=== PATIENT | male | born 1990 | race African-American/Black ===

== ENCOUNTER 2023-10-22 09:55 | Emergency (ER) | payer OTHER, SELFPAY ==
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
[2023-10-22 10:00] VITALS: BP 127/66; PULSE 70; RESP 16; TEMP 36.3; O2SAT 99
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
--- NOTE | 2023-10-22 11:45 | PC.NURSE ---
Ice pack given for neck pain.
== END 2023-10-22 11:48 | disposition home or self-care (01) ==
PROVIDERS: Emergency Provider Family Medicine; Referring Provider Emergency Medicine
DX: S16.1XXA Strain of muscle, fascia and tendon at neck level, initial encounter (principal); S93.401A Sprain of unspecified ligament of right ankle, initial encounter; V49.40XA Driver injured in collision with unspecified motor vehicles in traffic accident, initial encounter
CPT/HCPCS: 72040; 73610; 99284

== ENCOUNTER 2023-11-03 12:55 | Emergency (ER) | payer OTHER, SELFPAY ==
--- NOTE | ~2023-11-03 | XR_ITS ---
EXAMINATION: XR knee RT 3V DATE: 11/03/2023 13:15 INDICATION: Anterior right knee pain. Injury. TECHNIQUE: 3 views of right knee were obtained. COMPARISON: None. FINDINGS: Bone alignment is normal. No fracture. There is mild osteoarthritis of patellofemoral digna rtment. There is a small knee joint effusion. IMPRESSION: 1. Mild right knee osteoarthritis. 2. Small right knee joint effusion. Reviewed, dictated and finalized at location A.
[2023-11-03 13:04] VITALS: BP 120/76; PULSE 69; RESP 17; TEMP 36.7; O2SAT 100
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
[2023-11-03 13:41] VITALS: BP 118/73; PULSE 73; RESP 18; TEMP 36.7; O2SAT 100
== END 2023-11-03 13:42 | disposition home or self-care (01) ==
PROVIDERS: Emergency Provider Emergency Medicine; Referring Provider Family Medicine
DX: M25.461 Effusion, right knee (principal); M17.11 Unilateral primary osteoarthritis, right knee
CPT/HCPCS: 73562; 99283

== ENCOUNTER 2024-09-30 18:00 | Emergency (ER) | payer BC, SELFPAY ==
--- NOTE | ~2024-09-30 | XR_ITS ---
CHEST RADIOGRAPH, PA AND LATERAL CLINICAL HISTORY: cough . COMPARISON: None available TECHNIQUE: PA and lateral views of the chest. FINDINGS The cardiomediastinal silhouette is unremarkable. The lungs are clear. Visualized osseous structures and soft tissues are unremarkable. IMPRESSION: No focal infiltrate or effusion. Reviewed, dictated and finalized at location A.
[2024-09-30 18:05] VITALS: BP 139/68; PULSE 71; RESP 16; TEMP 36.4; O2SAT 100
--- NOTE | 2024-09-30 19:03 | ED_ITS ---
HPI - URI/Sore Throat General Chief Complaint: Upper Respiratory Infection Stated Complaint: coughing up blood Time Seen by Provider: 09/30/24 18:36 History of Present Illness HPI Narrative: 34-year-old otherwise healthy male presenting with upper respiratory infection symptoms for last several days and today he presented with hemoptysis he came to the ER for evaluation. No fever, chills, chest pain. No pleuritic component. Was otherwise in his normal state of health, no sick contacts. Has not tried any medications [id number]. No recent antibiotic use. No recent steroids. No history of smoking or lung disease. Related Data Allergies Allergy/AdvReac Type Severity Reaction Status Date / Time tramadol (From Ultram) AdvReac Nausea and Verified 09/30/24 18:03 Vomiting Review of Systems Review of Systems: As reviewed above in HPI PMFSH Past Medical History Medical History Healthy adult male Exam Narrative: GENERAL: [Well-appearing, well-nourished, and in no acute distress.] HEAD: [Normocephalic, atraumatic.] EYES: [PERRLA and EOMI.] ENT: Nares clear, no rhinorrhea or epistaxis. Mucous membranes moist. NECK: Supple. CHEST: Some coarse breath sounds right worse than left, no respiratory distress or tachypnea. HEART: [Regular rate and rhythm]. No murmur heard. [Normal peripheral pulses.] ABDOMEN: [Soft, nondistended], [nontender], [No rigidity or guarding] EXTREMITIES: Normal range of motion. [No edema.] SKIN: Warm, dry, no rash. NEURO: [No focal deficits]. Alert and oriented [x3.] PSYCH: [Normal mood and affect.] Course Vital Signs Vital signs: Vital Signs Temperature 36.4 C L 09/30/24 18:05 Pulse Rate 71 09/30/24 18:05 Respiratory Rate 16 09/30/24 18:05 Blood Pressure 139/68 09/30/24 18:05 Pulse Oximetry 100 09/30/24 18:05 Oxygen Delivery Room Air 09/30/24 18:05 Temperature 36.4 C L 09/30/24 18:05 Pulse Rate 85 09/30/24 19:53 Respiratory Rate 18 09/30/24 19:53 Blood Pressure 126/78 09/30/24 19:53 Pulse Oximetry 100 09/30/24 19:53 Oxygen Delivery Room Air 09/30/24 18:23 MDM - URI/Sore Throat MDM Narrative Medical decision making narrative: 34-year-old otherwise healthy male presenting to the emergency depart with upper respiratory infection symptoms for last several days associated with cough and congestion. Today he had a coughing fit and had some blood in the sputum. Previous the sputum was tinged yellow and green. No chest pain or chest discomfort. He is saturating well on room air, no hypoxia, tachycardia, tachypnea or fever. Normal blood pressure. Some asymmetric rhonchorous breath sounds, suspicion for pneumonia versus bronchitis. Pleurisy. Low suspicion for malignancy or thromboembolic event. Low Wells criteria. Two-view chest x-ray and viral panel swabs were obtained. Chest x-ray shows no suspicion findings or any pneumonia. COVID fluid RSV panel negative. Patient likely has bronchitis and will be sent home on steroids and albuterol as needed. Patient comfortable with this plan and safe for discharge. Medical Records Attestation: I reviewed the patient's medical records. Lab Data Attestation: I reviewed the patient's lab results. Labs: Lab Results 09/30/24 Range/Units 19:09 Influenza A (RT-PCR) Negative (Negative) Influenza B (RT-PCR) Negative (Negative) SARS-CoV-2 RNA (RT-PCR) Negative (Negative) Imaging Data Attestation: I personally reviewed and interpreted this imaging study as follows: My impression: Impressions Chest X-Ray 09/30/24 19:44 IMPRESSION: No focal infiltrate or effusion. Discharge Plan Discharge Clinical Impression: Bronchitis, Upper respiratory infection Patient Disposition: Home, Self-Care Condition: Stable Instructions: Antibiotic Form, Acute Bronchitis (ED) Additional Instructions: Your chest x-ray shows no signs of pneumonia. Your symptoms are consistent with bronchitis. We will send you home with a short course of steroids and an albuterol inhaler to take as needed if you have any shortness of breath or wheezing. Patient Language: Turkish Prescriptions: New methylprednisolone [Medrol (Paxton)] 4 mg tablets,dose pack See Rx Instructions .ROUTE .COMPLEX Qty: 21 0RF Rx Instructions: orally per package directions albuterol sulfate 90 mcg/actuation HFA aerosol inhaler 2 puff inhalation QID PRN (Reason: shortness of breath or wheezing) Qty: 8.5 0RF No Action ibuprofen 600 mg tablet 600 mg PO TID PRN (Reason: pain) Qty: 20 0RF cyclobenzaprine 5 mg tablet 5 mg PO HS PRN (Reason: muscle spasm) Qty: 20 0RF naproxen 375 mg tablet 375 mg PO BID Qty: 14 0RF Follow-up/Referrals: PHYSICIAN,CANDY BAR ATTENDANT [Primary Care Provider] - Time of Disposition: 20:04
--- OUTSIDE RECORDS SUMMARY | 2024-09-30 19:14 | XMS_ITS | Referral Summary ---
Author Organization [facility] Address [address] [place] [address] Care Team Providers Care Staff Midwife/Apprenticeship Director Name Role Phone No, Physician Primary Care Provider [phone] Allergies Active Allergy Reactions Criticality Noted Date Comments Tramadol Vomiting Low 09/24/2020 Medications ibuprofen (ADVIL,MOTRIN) 600 mg tablet Take 1 tablet (600 mg total) by mouth 3 (three) times a day as needed for pain 30 tablet 09/24/2020 Active ibuprofen (ADVIL,MOTRIN) 800 mg tablet Take 1 tablet (800 mg total) by mouth 3 (three) times a day 21 tablet 10/21/2023 Active Immunizations Immunization Administration Dates Next Due DTP 03/16/1994, 1,1988,1988,0 1988,1988,1988 Hep A, Adult 01/13/2019 Hep A, Ped Unspecified 02/05/2006 Hep A, Unspecified 07/31/2022 Hep B, Adolescent or Pediatric 07/06/2003,2001,05/30/2001 HiB 03/08/1991 MMR 03/16/1994,09/01/1989 OPV 03/16/1994, 1,1988,1988,0 1988,1988 Tdap 11/03/2020,02/05/2006 Social History Tobacco Use Types Packs/Day Years Used Date Smoking Tobacco: Never Assessed Personal Safety Answer Date Recorded Have you ever been in or are you currently in a harmful physical or emotional relationship or is someone making you feel afraid or unsafe? 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 Gender Identity Not on file Sexual Orientation Not on file Last Filed Vital Signs Vital Sign Reading Time Taken Comments Blood Pressure 120/76 10/21/2023 5:39 AM CDT Pulse 67 10/21/2023 5:39 AM CDT Temperature 36.7 C (98.1 F) 10/21/2023 1:54 AM CDT Respiratory Rate 19 10/21/2023 5:39 AM CDT Oxygen Saturation 100% 10/21/2023 5:39 AM CDT Inhaled Oxygen Concentration - - Weight 74.8 kg (165 lb) 10/21/2023 1:54 AM CDT Height 175.3 cm (5' 9 ) 10/21/2023 1:54 AM CDT Body Mass Index 24.37 10/21/2023 1:54 AM CDT Plan of Treatment Not on file [id number] [place] [id number] [facility] [place] [address] ACCESS [facility] Care Teams Staff Midwife/Apprenticeship Director Relationship Specialty Start Date End Date No, Physician PCP - General 09/24/20
--- OUTSIDE RECORDS SUMMARY | 2024-09-30 19:14 | XMS_ITS | Clinical Summary ---
Author Organization [facility] Address [address] [place] [address] Care Team Providers Care Animal Husbandry Professor Name Role Phone None, Provider MD Primary Care Provider Unavaila ble Allergies Active Allergy Reactions Criticality Noted Date Comments Tramadol Vomiting,Nausea and Vomiting 018 Medications ondansetron 4 MG disintegrating tablet Take 1 tablet (4 mg total) by mouth every 8 (eight) hours as needed for Nausea. 20 tablet 1 Active HYDROcodone-acetami nophen 5-325 MG tabletIndications:A cute Pain < 7 Day Supply Take 1 tablet by mouth every 6 (six) hours as needed. Indications : Acute Pain < 7 Day Supply 20 tablet 1 Active diazePAM 5 MG tablet Take 1 tablet (5 mg total) by mouth every 6 (six) hours as needed (muscle spasm). 10 tablet 1 Active aspirin 81 MG chewable tablet Chew 81 mg by mouth daily. Active Active Problems No known active problems Family History Medical History Relation Comments No Known Problems Father No Known Problems Mother Relation Status Comments Father Alive Mother Alive Social History Tobacco Use Types Packs/Day Years Used Date Smoking Tobacco: Never Smokeless Tobacco: Never Tobacco Cessation:Counseling Given: Yes Alcohol Use Standard Drinks/Week Comments Not Currently 0 (1 standard drink = 0.6 oz pur e alcohol) Sex and Gender Information Value Date Recorded Sex Assigned at Not on file Legal Sex Male 7:39 PM CDT Gender Identity Not on file Sexual Orientation Not on file Last Filed Vital Signs Vital Sign Reading Time Taken Comments Blood Pressure 117/83 02/26/2021 11:31 AM CDT Pulse 78 02/26/2021 11:31 AM CDT Temperature 36.2 C (97.2 F) 02/05/2021 10:23 AM CDT Respiratory Rate 20 02/26/2021 11:31 AM CDT Oxygen Saturation 98% 02/26/2021 11:31 AM CDT Inhaled Oxygen Concentration - - Weight 76.7 kg (169 lb) 02/26/2021 11:31 AM CDT Height 175.3 cm (5' 9 ) 02/26/2021 11:31 AM CDT Body Mass Index 24.96 02/26/2021 11:31 AM CDT Plan of Treatment Health Maintenance Due Date Last Done Comments Annual Physical 1991 Hepatitis C 2006 DTaP, Tdap and Td Vaccines ( 1 - Tdap) 2007 Hepatitis B Vaccines (1 of 3 - 19+ 3-dose series) 2007 COVID-19 Vaccine (2023-2 5 season) 2024 01/10/2021, 12/13/2020 Influenza Adult (#1) 2024 HPV Vaccines Aged Out No longer eligi ble based on patient's age to complete this topic Meningococcal B Vaccine Aged Out No l onger eligible based on patient's age to complete this topic Meningococcal Vaccine Aged Out No chelita troy eligible based on patient's age to complete this topic Pneumococcal Vaccine: Pediatrics (0 to 5 Years) and At-Risk Patients (6 to 64 Years) Aged Out No longer eligible b ased on patient's age to complete this topic RSV Immunizations Under 20 Months Aged Out No longer eligible b ased on patient's age to complete this topic Medical Devices Implanted Type Area Fruit Vendor Device Identifier Shelf Expiration Date Model / Serial / Lot Left 4-Hole Plate Implanted:Qty: 1 on 01/23/2021 by Gabriele Mayer MD at [facility] Plate Left: Ankle [employer] [id number] / / 3.5 Cortical Screws 16mm Implanted:Qty: 2 on 01/23/2021 by Gabriele Mayer MD at [facility] Screw Left: Ankle [employer] [id number] / / 2.7mm Locking Screw, 12mm Implanted:Qty: 3 on 01/23/2021 by Gabriele Mayer MD at [facility] [place] Screw Left: Ankle [employer] [id number] / / 2.7mm Locking Screw, 14mm Implanted:Qty: 1 on 01/23/2021 by Gabriele Mayer MD at [facility] [place] Screw Left: Ankle [employer] [id number] / / 2.7mm Locking Screw, 10mm Implanted:Qty: 1 on 01/23/2021 by Gabriele Mayer MD at [facility] [place] Screw Left: Ankle [employer] [id number] / / 3.5 Cortical Screw, 26mm Implanted:Qty: 1 on 01/23/2021 by Gabriele Mayer MD at [facility] [place] Screw Left: Ankle [employer] [id number] / / 3.5 Cortical Screw, 18mm Implanted:Qty: 1 on [facility] Left: Ankle [employer] [id number] / / Explanted Type Area Fruit Vendor Device Identifier Shelf Expiration Date Model / Serial / Lot 3.5 Cortical Screw 28mm Explanted:Qty: 1 on 01/23/2021 [facility] Screw Left: Ankle [employer] [id number] / / Insurance MEDICAID Care Teams Animal Husbandry Professor Relationship Specialty Start Date End Date None, ProviderMD PCP - General 01/14/21
--- OUTSIDE RECORDS SUMMARY | 2024-09-30 19:14 | XMS_ITS | Clinical Summary ---
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 Gender Identity Not on file Sexual Orientation Not on file Obstetrics History Last Filed Vital Signs Vital Sign Reading [...] 10/21/2023 1:54 AM CDT Plan of Treatment Health Maintenance Due Date Last Done Comments Depression Screening 1988 Hepatitis C Screening 1988 Varicella Vaccines (1 of 2 - 13+ 2-dose series) 2001 Regular Well Visit/Exam 18-64 2006 Covid-19 Vaccine ( season) 2024 07/14/2021, 06/06/2021, 01/10/2021, Additional history exists Influenza Vaccine (#1) 2024 DTaP/Tdap/Td Vaccine (8 - Td or Tdap) 11/03/2030 11/03/2020, 02/05/2006, 03/16/1994, Additional history exists Hepatitis B Screening Completed 07/06/2003 , 03/10/2002, 05/30/2001 HPV Vaccines Aged Out No longer eligi ble based on patient's age to complete this topic Pneumococcal vaccine <65 Aged Out No longer eligible based on patient's age to complete this topic Insurance IDPA [facility] ANTH [employer]ESS [facility] Care Teams Bead Worker Sewing Relationship Specialty Start Date End Date No, Physician PCP - General 09/24/20
[2024-09-30 19:52] LABS: Influenza A QL RT-PCR Negative (Negative); Influenza B QL RT-PCR Negative (Negative); SARS-CoV-2 RNA PCR Negative (Negative)
[2024-09-30 19:53] VITALS: BP 126/78; PULSE 85; RESP 18; O2SAT 100
[2024-09-30 20:44] VITALS: BP 133/71; PULSE 74; RESP 18; O2SAT 100
== END 2024-09-30 20:45 | disposition home or self-care (01) ==
PROVIDERS: Emergency Provider Student in an Organized Health Care Education/Training Program
DX: J40 Bronchitis, not specified as acute or chronic (principal); J06.9 Acute upper respiratory infection, unspecified
CPT/HCPCS: 71046; 87636; 99283